=== PATIENT | female | born 1985 | race Hispanic/Latino ===

== ENCOUNTER 2019-09-24 21:42 | Emergency (ER) | payer MEDICAID, OTHER, SELFPAY ==
[2019-09-24] MEDS ORDERED: ACETAMINOPHEN EXTRA STRENGTH 500 MG TABLET ONE (22:00)
[2019-09-24 22:43] LABS: RAPID GROUP A STREP NEGATIVE (NEGATIVE)
== END 2019-09-24 23:34 | disposition home or self-care (01) ==
LOC: EDH 21:42
DX: R50.9 Fever, unspecified (principal); R51 Headache; R06.02 Shortness of breath; Z20.828 Contact with and (suspected) exposure to other viral communicable diseases
CPT/HCPCS: 87804; 87880